=== PATIENT | male | born 2000 | race Caucasian/White ===

== ENCOUNTER 2024-12-28 15:09 | Emergency (ER) | payer SELFPAY ==
[2024-12-28 15:10] VITALS: BP 127/85; PULSE 104; RESP 18; TEMP 36.7; O2SAT 98
--- NOTE | 2024-12-28 15:18 | XRR_ITS ---
PROCEDURE INFORMATION: Exam: XR Chest Exam date and time: 12/28/2024 3:59 PM Age: 24 years old Clinical indication: Palpitations; Tachycardia TECHNIQUE: Imaging protocol: Radiologic exam of the chest. Views: 1 view. COMPARISON: No relevant prior studies available. FINDINGS: Lungs: Unremarkable. No consolidation. Pleural spaces: Unremarkable. No pleural effusion. No pneumothorax. Heart/Mediastinum: Unremarkable. No cardiomegaly. Bones/joints: Unremarkable. XR/XR chest 1V portable [id number] IMPRESSION: No acute findings.
--- NOTE | 2024-12-28 15:21 | ECG_ITS ---
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 Measurements Intervals [place] Rate: 106 P: 47 [place]: 202 QRS: 57 QRSD: 78 T: 63 QT: 309 QTc: 412 Interpretive Statements SINUS TACHYCARDIA NONSPECIFIC T-WAVE ABNORMALITY ABNORMAL RHYTHM ECG No previous ECG available for comparison Electronically Signed On 12-28-2024 21:27:31 CDT by Charito Correia M.D. [id number]
--- NOTE | 2024-12-28 15:21 | ED_ITS ---
HPI - Arrhythmia/Palpitations 2 General: Chief Complaint: Arrhythmia/Palpitations Stated Complaint: high heart rate Time Seen by Provider: 12/28/24 15:12 Source: patient Mode of arrival: ambulatory Limitations: no limitations History of Present Illness: 24-year-old male states that he started having palpitations last night and then woke up this morning again with palpitations. He states has had this happen in the past. States usually resolves on its own but during this time EMS states his heart rate was in the 140s to 160s when they arrived it is improved currently 105 he denies any chest pain denies any shortness of breath. Associated symptoms: Deny nausea or vomiting Related Data Allergies Allergy/AdvReac Type Severity Reaction Status Date / Time No Known Allergies Allergy Verified 12/28/24 15:15 Review of Systems 2 Const: Denies: fever(s), chills, body aches or change in appetite ENMT: Denies: throat pain or dental pain Card: Reports: palpitations; Denies: chest pain Resp: Denies: dyspnea GI: Denies: abdominal pain, nausea, vomiting or diarrhea : Denies: dysuria Musc: Denies: neck pain or back pain Skin/Breast: Denies: rash Neuro: Denies: headache(s) Physical Exam 2 Const: COMMON NORMALS: no acute distress, patient oriented x3 and healthy appearing HENMT: COMMON NORMALS: normocephalic and atraumatic HEAD & SCALP: n ormocephalic and atraumatic Eye: COMMON NORMALS: conjunctivae normal CONJUNCTIVA: Yes conjunctivae normal Neck/C-Spine: COMMON NORMALS: full ROM and supple Chest: COMMONS NORMALS: normal inspection of the chest Resp: COMMON NORMALS: normal respiratory effort, No retractions, No use of accessory muscles and clear to auscultation bilaterally AUSCULTATION: clear to auscultation bilaterally Cardio: COMMON NORMALS: regular rhythm and No murmurs present (Cardio) R ATE: tachycardic RHYTHM: regular rhythm Extremity: COMMON NORMALS: normal to inspection and full ROM Neuro: COMMON NORMALS: patient oriented x3, moves all extremities and no focal motor deficits Psych: COMMON NORMALS: mental status grossly normal, Normal thought process present and cooperative THOUGHT PROCESS: Normal thought process present Skin: COMMON NORMALS: no rashes or lesions noted and no wounds GENERAL SKIN EXAM: no rashes or lesions noted Course 2 Vital Signs: Vital signs: Vital Signs Temperature 98.1 F 12/28/24 15:10 Pulse Rate 108 H 12/28/24 16:05 Respiratory Rate 18 12/28/24 15:10 Blood Pressure 110/68 12/28/24 16:05 Pulse Oximetry 97 12/28/24 16:05 Oxygen Delivery Me thod Room Air 12/28/24 16:05 MDM - Arrhythmia/Palpitations Medical Decision Making Patient presents here with palpitations blood work EKG is normal here he has no signs of pulmonary embolism he feels improved he stable for discharge follow-up with PCP return if worsening. Medical Records I reviewed the patient's medical records. Lab Data I reviewed the patient's lab results. 12/28/24 15:00 12/28/24 15:00 Laboratory Results WBC 14.61 10^3/uL (3.29-11.43) H 12/28/24 15:00 RBC 5.87 10^6/uL (3.85-5.65) H 12/28/24 15:00 Hgb 16.70 g/dL (11.27-16.99) 12/28/24 15:00 Hct 48.8 % (37-53) 12/28/24 15:00 MCV 83.1 fl (82-101) 12/28/24 15:00 MCH 28.4 pg (27-33) 12/28/24 15:00 MCHC 34.2 g/dL (30-55) 12/28/24 15:00 RDW 12.5 % (12.1-15.1) 12/28/24 15:00 Plt Count 242 10^3/cmm (157-399) 12/28/24 15:00 MPV 10.8 fL (7.4-10.4) H 12/28/24 15:00 Neut % (Auto) 72.1 % 12/28/24 15:00 Lymph % (Auto) 17.8 % 12/28/24 15:00 [place] % (Auto) 6.4 % 12/28/24 15:00 Eos % (Auto) 2.7 % 12/28/24 15:00 Baso % (Auto) 0.7 % 12/28/24 15:00 Neut # (Auto) 10.54 10^3/uL (1.8-7.7) H 12/28/24 15:00 Lymph # (Auto) 2.6 10^3/uL (0.8-4.8) 12/28/24 15:00 [place] # (Auto) 0.9 10^3/uL (0.2-0.9) 12/28/24 15:00 Eos # (Auto) 0.4 10^3/uL (0.0-0.8) 12/28/24 15:00 Baso # (Auto) 0.1 10^3/uL (0.0-0.1) 12/28/24 15:00 Nucleated RBC % (auto) 0 % 12/28/24 15:00 Nucleated RBCs # 0.0 /100WBC 12/28/24 15:00 Sodium 139 mmol/L (136-145) 12/28/24 15:00 Potassium 3.6 mmol/L (3.5-5.1) 12/28/24 15:00 Chloride 101 mmol/L (98-107) 12/28/24 15:00 Carbon Dioxide 22 mmol/L (22-29) 12/28/24 15:00 Anion Gap 19.6 (5-19) H 12/28/24 15:00 BUN 10 mg/dL (6-20) 12/28/24 15:00 Creatinine 0.8 mg/dL (0.7-1.2) 12/28/24 15:00 GFR Calculation 117.8 mL/min (90-130) 12/28/24 15:00 Glucose 99 mg/dL (65-115) 12/28/24 15:00 Calculated Osmolality 287 mOsm/kg (285-295) 12/28/24 15:00 Calcium 10.2 mg/dL (8.5-10.5) 12/28/24 15:00 Total Bilirubin 0.6 mg/dL (0.15-1.2) 12/28/24 15:00 AST 41 U/L (0-40) H 12/28/24 15:00 ALT 67 U/L (0-41) H 12/28/24 15:00 Alkaline Phosphatase 104 U/L (40-130) 12/28/24 15:00 Total Protein 8.2 g/dL (6.6-8.7) 12/28/24 15:00 Albumin 5.2 g/dL (3.5-5.2) 12/28/24 15:00 Globulin 3.0 g/dL (1.3-4.6) 12/28/24 15:00 All radiology interpretation(s) finalized by discharge EKG Data EKG 1: I personally reviewed and interpreted this EKG as follows: EKG interpretation date: 12/28/24 EKG interpretation time: 15:21 Interpretation: sinus tach hr [address] elevation qrs 78 qtc 371 Discharge Plan Discharge Patient Disposition: Home Clinical Impression: Palpitations Condition: Stable Discharge Orders: Discharge ED (Routine); Ordered 12/28/24 Ordered By: Kellie Acharya Discharge Diet: Advance as tolerated Discharge Activity: Resume usual activity Patient Instructions: Heart Palpitations (ED) Print Language: Hebrew Coding Level of Care Code ED Chronic Disease Manager for Diana Sr
[2024-12-28 15:22] VITALS: PULSE 98; O2SAT 99
[2024-12-28 15:24] LABS: Basophils # 0.1 10^3/uL (0.0-0.1); Basophils % 0.7 %; Eosinophils # 0.4 10^3/uL (0.0-0.8); Eosinophils % 2.7 %; Hematocrit 48.8 % (37-53); Lymphocytes # 2.6 10^3/uL (0.8-4.8); Lymphocytes % 17.8 %; Mean Corpuscular HGB Conc 34.2 g/dL (30-55); Mean Corpuscular Hemoglobin 28.4 pg (27-33); Mean Corpuscular Volume 83.1 fl (82-101); Mean Platelet Volume 10.8 fL (7.4-10.4); Monocytes # 0.9 10^3/uL (0.2-0.9); Monocytes % 6.4 %; Neutrophils # 10.54 10^3/uL (1.8-7.7); Neutrophils % 72.1 %; Nucleated Red Blood Cells % 0 %; Platelet Count 242 10^3/cmm (157-399); Red Blood Count 5.87 10^6/uL (3.85-5.65); Red Cell Distribution Width 12.5 % (12.1-15.1); White Blood Count 14.61 10^3/uL (3.29-11.43)
[2024-12-28] MEDS: sodium chloride 0.9% 1,000 ML 999 ML IV (15:45)
[2024-12-28] MEDS: LORazepam 1 MG/0.5 ML injection IVP (15:45)
[2024-12-28 15:47] LABS: Alanine Aminotransferase 67 U/L (0-41); Albumin Level 5.2 g/dL (3.5-5.2); Alkaline Phosphatase 104 U/L (40-130); Anion Gap 19.6 (5-19); Aspartate Amino Transferase 41 U/L (0-40); Blood Urea Nitrogen 10 mg/dL (6-20); Calcium 10.2 mg/dL (8.5-10.5); Carbon Dioxide 22 mmol/L (22-29); Chloride 101 mmol/L (98-107); Glomerular Filtration Rate 117.8 mL/min (90-130); Glucose 99 mg/dL (65-115); Osmolality Calculated 287 mOsm/kg (285-295); Potassium 3.6 mmol/L (3.5-5.1); Sodium 139 mmol/L (136-145); Total Bilirubin 0.6 mg/dL (0.15-1.2); Total Protein 8.2 g/dL (6.6-8.7)
[2024-12-28 16:05] VITALS: BP 110/68; PULSE 108; O2SAT 97
[2024-12-28 16:54] VITALS: BP 119/71; PULSE 103; O2SAT 98
== END 2024-12-28 16:55 | disposition home or self-care (01) ==
PROVIDERS: Emergency Provider Emergency Medicine
DX: R00.2 Palpitations (principal)
CPT/HCPCS: 71045; 80053; 85025; 93005; 96374; 99285; J2060; J7030

== ENCOUNTER → 2025-01-06 13:20 | Outpatient (BNVA) | payer SELFPAY | PROVIDERS: Visit Provider Registered Nurse Neonatal Intensive Care | DX: J02.9 Acute pharyngitis, unspecified (principal) | CPT/HCPCS: 87880 ==

== ENCOUNTER 2025-01-15 21:17 | Emergency (ER) | payer SELFPAY ==
[2025-01-15 21:27] VITALS: BP 157/98; PULSE 75; RESP 14; TEMP 36.5; O2SAT 97
--- NOTE | 2025-01-15 21:38 | CTR_ITS ---
PROCEDURE INFORMATION: Exam: CTA Head With Contrast, Arteriography Exam date and time: 01/15/2025 9:53 PM Age: 24 years old Clinical indication: Numbness and weakness; Additional info: Left facial numbness, left arm weakness TECHNIQUE: Imaging protocol: Computed tomographic angiography of the head with contrast. Exam focused on the arteries. 3D rendering (Not supervised by radiologist): MIP and/or 3D reconstructed images were created by the technologist. Radiation optimization: All CT scans at this facility use at least one of these dose optimization techniques: automated exposure control; mA and/or kV adjustment per patient size (includes targeted exams where dose is matched to clinical indication); or iterative reconstruction. Contrast material: OMNI 350; Contrast volume: 100 ml; Contrast route: INTRAVENOUS (IV); COMPARISON: CT head wo con* [id number] 01/15/2025 9:49 PM RADIATION DOSE METRICS: Total DLP (mGy-cm): 409.8 FINDINGS: ANTERIOR CIRCULATION: Right internal carotid artery: Intracranial segment is patent with no significant stenosis. No aneurysm. Right middle cerebral artery: No occlusion or significant stenosis. No aneurysm. Right anterior cerebral artery: No occlusion or significant stenosis. No aneurysm. Left internal carotid artery: Intracranial segment is patent with no significant stenosis. No aneurysm. Left middle cerebral artery: No occlusion or significant stenosis. No aneurysm. Left anterior cerebral artery: No occlusion or significant stenosis. No aneurysm. POSTERIOR CIRCULATION: Right vertebral artery: No occlusion or significant stenosis. No aneurysm. Left vertebral artery: No occlusion or significant stenosis. No aneurysm. Basilar artery: No occlusion or significant stenosis. No aneurysm. Right posterior cerebral artery: No occlusion or significant stenosis. No aneurysm. Left posterior cerebral artery: No occlusion or significant stenosis. No aneurysm. Brain: No acute intracranial hemorrhage, abnormal extra-axial fluid collection, mass effect, or midline shift. Cerebral ventricles: The ventricular system is within normal limits variation of the patient's age. Bones/joints: Unremarkable. No acute fracture. Soft tissues: Unremarkable. PROCEDURE INFORMATION: Exam: CTA Neck With Contrast Exam date and time: 01/15/2025 9:53 PM Age: 24 years old Clinical indication: Numbness and weakness; Additional info: Left facial numbness, left arm weakness TECHNIQUE: Imaging protocol: Computed tomographic angiography of the neck with contrast. Exam focused on the cervical segments of the vasculature. 3D rendering (Not supervised by radiologist): MIP and/or 3D reconstructed images were created by the technologist. Radiation optimization: All CT scans at this facility use at least one of these dose optimization techniques: automated exposure control; mA and/or kV adjustment per patient size (includes targeted exams where dose is matched to clinical indication); or iterative reconstruction. Contrast material: OMNI 350; Contrast volume: 100 ml; Contrast route: INTRAVENOUS (IV); COMPARISON: CT head wo con* [id number] 01/15/2025 9:49 PM RADIATION DOSE METRICS: Total DLP (mGy-cm): 409.8 FINDINGS: Right common carotid artery: No stenosis. No dissection or occlusion. Right internal carotid artery: No stenosis of the extracranial segment. No dissection or occlusion. Right external carotid artery: No occlusion or stenosis of the origin. Left common carotid artery: No stenosis. No dissection or occlusion. Left internal carotid artery: No stenosis of the extracranial segment. No dissection or occlusion. Left external carotid artery: No occlusion or stenosis of the origin. Right vertebral artery: No stenosis. No dissection or occlusion. Left vertebral artery: No stenosis. No dissection or occlusion. Soft tissues: Grossly unremarkable. Bones/joints: No acute fracture. CT/CT angio headneck* [id number] IMPRESSION: No large vessel stenosis, aneurysm, or occlusion. IMPRESSION: No stenosis, dissection, or occlusion. REFERENCES: NASCET CRITERIA. The degree of stenosis in the cervical segment of the internal carotid artery is based on NASCET criteria. Normal is no stenosis. Mild is less than 50% stenosis. Moderate is 50-69% stenosis. Severe is 70% to 99% stenosis. Total occlusion is no detectable patent lumen.
--- NOTE | 2025-01-15 21:38 | CTR_ITS ---
PROCEDURE INFORMATION: Exam: CT Head Without Contrast Exam date and time: 01/15/2025 9:49 PM Age: 24 years old Clinical indication: Numbness / parasthesia and weakness, facial; Left; Additional info: Left facial numbnes TECHNIQUE: Imaging protocol: Computed tomography of the head without contrast. Radiation optimization: All CT scans at this facility use at least one of these dose optimization techniques: automated exposure control; mA and/or kV adjustment per patient size (includes targeted exams where dose is matched to clinical indication); or iterative reconstruction. COMPARISON: No relevant prior studies available. RADIATION DOSE METRICS: Total DLP (mGy-cm): 1111.2 FINDINGS: Brain: No acute intracranial hemorrhage, abnormal extra-axial fluid collection, mass effect, or midline shift. Cerebral ventricles: The ventricular system is within normal limits of variation for the patient's age. Paranasal sinuses: No acute sinusitis. Mastoid air cells: Visualized mastoid air cells are well aerated. Bones: No acute fracture. Soft tissues: Grossly unremarkable. CT/CT head wo con* [id number] IMPRESSION: No acute intracranial findings.
--- NOTE | 2025-01-15 21:39 | ECG_ITS ---
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
[2025-01-15 22:13] LABS: Hematocrit 45.6 % (37-53); Hemoglobin 15.40 g/dL (11.27-16.99); Mean Corpuscular HGB Conc 33.8 g/dL (30-55); Mean Corpuscular Hemoglobin 28.5 pg (27-33); Mean Corpuscular Volume 84.4 fl (82-101); Nucleated Red Blood Cells % 0 %; Platelet Count 217 10^3/cmm (157-399); Red Blood Count 5.40 10^6/uL (3.85-5.65); White Blood Count 8.78 10^3/uL (3.29-11.43)
[2025-01-15 22:30] VITALS: BP 142/80; PULSE 95; RESP 17; O2SAT 96
[2025-01-15 22:34] LABS: Alanine Aminotransferase 58 U/L (0-41); Albumin Level 4.2 g/dL (3.5-5.2); Alkaline Phosphatase 78 U/L (40-130); Anion Gap 16.3 (5-19); Aspartate Amino Transferase 24 U/L (0-40); Blood Urea Nitrogen 11 mg/dL (6-20); Calcium 8.9 mg/dL (8.5-10.5); Carbon Dioxide 23 mmol/L (22-29); Chloride 100 mmol/L (98-107); Creatinine Clr Calc Pharmacy 124.8908; Globulin 2.6 g/dL (1.3-4.6); Glucose 154 mg/dL (65-115); Osmolality Calculated 284 mOsm/kg (285-295); Potassium 3.3 mmol/L (3.5-5.1); Sodium 136 mmol/L (136-145); Total Protein 6.8 g/dL (6.6-8.7)
[2025-01-15 22:37] LABS: Troponin(5th) Baseline < 6 ng/L (0-15)
[2025-01-15 23:30] VITALS: BP 130/81; PULSE 97; RESP 18; O2SAT 94
--- NOTE | 2025-01-15 23:38 | ECG_ITS ---
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
--- NOTE | 2025-01-15 23:44 | ED_ITS ---
HPI - Weakness 2 General: Chief complaint: Weakness Stated complaint: left arm and face tingling. feels heavy Time Seen by Provider: 01/15/25 21:33 History of Present Illness: Patient presents emerged part with complaint of palpitations and some chest pressure. He states has had this off and on for several months recently but has happened for many years. He states that it will come and waves where it will be worse for a few months. He states that he feels his heart racing up to 140-160. Sometimes even as high as 180. He has not been actually able to catch anything on EKG but he feels that he probably has SVT. Tonight he also states that he feels like his left arm is heavy although he denies it being particularly weak or numb. He just states that the muscles in the feel funny. He is on amoxicillin for strep. He also states that he feels like maybe the left side of his face is little bit more numb. He states the arm and face sensation has been going on for the past 3 days. PFSH ED 2 PFSH: Social History Smoking and tobacco/nicotine status: never used tobacco/nicotine Physical Exam 2 Const: COMMON NORMALS: no acute distress, average body habitus, patient oriented x3, no limitations, healthy appearing, alert and well nourished HENMT: COMMON NORMALS: normocephalic, atraumatic, hearing grossly normal bilaterally, external ears normal, EAC's normal, TM's normal bilaterally, Normal external nose present, Normal nasal mucous membranes and turbinates present, moist oral mucous membranes, oropharynx normal, dentition normal and gingiva normal HEAD & SCALP: normocephalic and atraumatic NOSE: Normal external nose present and Normal nasal mucous membranes and turbinates present E XTERNAL EAR: Yes external ears normal EXTERNAL AUDITORY CANAL: EAC's normal TYMPANIC MEMBRANE: TM's normal bilaterally Eye: COMMON NORMALS: Equal, round and reactive pupils present, EOMs intact bilaterally, conjunctivae normal, no scleral icterus, no papilledema, normal visual norris by confrontation and fundi normal bilaterally CONJUNCTIVA: Yes conjunctivae normal PUPIL: Yes Equal, round and reactive pupils present D IRECT OPHTHALMOSCOPY: Yes no papilledema and Yes fundi normal bilaterally Neck/C-Spine: COMMON NORMALS: full ROM, no lymphadenopathy, supple, no meningeal signs, no JVD, Thyroid normal and No carotid bruits THYROID: T hyroid normal Chest: COMMONS NORMALS: normal inspection of the chest, normal palpation of entire chest wall and normal inspection of the breasts Breast/axilla inspection: Yes normal inspection of the breasts Resp: COMMON NORMALS: normal respiratory effort, No retractions, No use of accessory muscles, clear to auscultation bilaterally and percussion normal A USCULTATION: clear to auscultation bilaterally PERCUSSION: percussion normal Cardio: COMMON NORMALS: no JVD GI: COMMON NORMALS: Normal to inspection, nondistended, normoactive bowel sounds present, Soft to palpation, non-tender, No hepatosplenomegaly present, no masses and no bruits PALPATION: Yes Soft to palpation and Yes No hepatosplenomegaly present Extremity: COMMON NORMALS: normal to inspection, full ROM, capillary refill normal, no joint enlargement, no clubbing, cyanosis or edema, no calf tenderness and no pedal edema Neuro: COMMON NORMALS: patient oriented x3, moves all extremities, no focal motor deficits and no sensory deficits noted SENSORIUM/ORIENTATION: Yes alert MENINGEAL SIGNS: Yes no meningeal signs SENSORY EXAM: Yes extremities M OTOR EXAM: 5/5 motor strength present throughout Psych: COMMON NORMALS: mental status grossly normal, Normal thought process present, cooperative, normal affect, speech normal, activity/motor behavior normal, denies hallucinations, denies homicidal ideation and denies suicidal ideation SPEECH: Yes normal speech THOUGHT PROCESS: Normal thought process present Course 2 Vital Signs: Vital signs: Vital Signs Temperature 97.7 F 01/15/25 21:27 Pulse Rate 75 01/15/25 21:27 Respiratory Rate 14 01/15/25 21:27 Blood Pressure 157/98 01/15/25 21:27 Pulse Oximetry 97 01/15/25 21:27 Oxygen Delivery Me thod Room Air 01/15/25 21:27 MDM - Weakness Medical Decision Making Patient with intermittent palpitations off and on for several months if not even years. States that he has chest pressure associated with it. He states that he feels like the left side of his face may feel a bit numb with some odd sensation in his left arm when he moves it. He has got no objective findings. Patient has no significant abnormality noted on labs or imaging including head CT and CTA of the head and neck. Troponin is negative. Labs are normal. Unclear if symptoms are physiologic or psychogenic. EKG is nonischemic. Do not see any emergent condition at this time. This patient has been having symptoms of his left face and left arm for 3 days and has normal head CT without CVA. Patient to follow-up with cardiology regarding palpitations. Lab Data 01/15/25 22:07 01/15/25 22:[address] 01/15/25 21:38 IMPRESSION: No acute intracranial findings. Head/Neck CTA 01/15/25 21:38 IMPRESSION: No large vessel stenosis, aneurysm, or occlusion. IMPRESSION: No stenosis, dissection, or occlusion. REFERENCES: NASCET CRITERIA. The degree of stenosis in the cervical segment of the internal carotid artery is based on NASCET criteria. Normal is no stenosis. Mild is less than 50% stenosis. Moderate is 50-69% stenosis. Severe is 70% to 99% stenosis. Total occlusion is no detectable patent lumen. Laboratory Results WBC 8.78 10^3/uL (3.29-11.43) 01/15/25 22:07 RBC 5.40 10^6/uL (3.85-5.65) 01/15/25 22:07 Hgb 15.40 g/dL (11.27-16.99) 01/15/25 22:07 Hct 45.6 % (37-53) 01/15/25 22:07 MCV 84.4 fl (82-101) 01/15/25 22:07 MCH 28.5 pg (27-33) 01/15/25 22:07 MCHC 33.8 g/dL (30-55) 01/15/25 22:07 RDW 12.7 % (12.1-15.1) 01/15/25 22:07 Plt Count 217 10^3/cmm (157-399) 01/15/25 22:07 MPV 10.7 fL (7.4-10.4) H 01/15/25 22:07 Neut % (Auto) 55.0 % 01/15/25 22:07 Lymph % (Auto) 31.5 % 01/15/25 22:07 [place] % (Auto) 7.6 % 01/15/25 22:07 Eos % (Auto) 4.9 % 01/15/25 22:07 Baso % (Auto) 0.8 % 01/15/25 22:07 Neut # (Auto) 4.82 10^3/uL (1.8-7.7) 01/15/25 22:07 Lymph # (Auto) 2.8 10^3/uL (0.8-4.8) 01/15/25 22:07 [place] # (Auto) 0.7 10^3/uL (0.2-0.9) 01/15/25 22:07 Eos # (Auto) 0.4 10^3/uL (0.0-0.8) 01/15/25 22:07 Baso # (Auto) 0.1 10^3/uL (0.0-0.1) 01/15/25 22:07 Nucleated RBC % (auto) 0 % 01/15/25 22:07 Nucleated RBCs # 0.0 /100WBC 01/15/25 22:07 Sodium 136 mmol/L (136-145) 01/15/25 22:07 Potassium 3.3 mmol/L (3.5-5.1) L 01/15/25 22:07 Chloride 100 mmol/L (98-107) 01/15/25 22:07 Carbon Dioxide 23 mmol/L (22-29) 01/15/25 22:07 Anion Gap 16.3 (5-19) 01/15/25 22:07 BUN 11 mg/dL (6-20) 01/15/25 22:07 Creatinine 0.8 mg/dL (0.7-1.2) 01/15/25 22:07 GFR Calculation 117.8 mL/min (90-130) 01/15/25 22:07 Glucose 154 mg/dL (65-115) H 01/15/25 22:07 Calculated Osmolality 284 mOsm/kg (285-295) L 01/15/25 22:07 Calcium 8.9 mg/dL (8.5-10.5) 01/15/25 22:07 Total Bilirubin 0.4 mg/dL (0.15-1.2) 01/15/25 22:07 AST 24 U/L (0-40) 01/15/25 22:07 ALT 58 U/L (0-41) H 01/15/25 22:07 Alkaline Phosphatase 78 U/L (40-130) 01/15/25 22:07 Creatine Kinase 48 U/L (39-308) 01/15/25 22:07 Troponin T Baseline < 6 ng/L (0-15) 01/15/25 22:07 Total Protein 6.8 g/dL (6.6-8.7) 01/15/25 22:07 Albumin 4.2 g/dL (3.5-5.2) 01/15/25 22:07 Globulin 2.6 g/dL (1.3-4.6) 01/15/25 22:07 All radiology interpretation(s) finalized by discharge Discharge Plan Discharge Patient Disposition: Home Clinical Impression: Heart palpitations Condition: Stable Prescriptions: No Action amoxicillin-pot clavulanate 875-125 mg tablet 1 tab PO BID 10 Days Qty: 20 0RF aspirin [Alfonso Low Dose Aspirin] 81 mg Tablet,Delayed Release (Dr/Ec) 81 mg PO DAILY Discharge Orders: Discharge ED (Routine); Ordered 01/15/25 Ordered By: Rivera Rocha Referrals: Arleen Sidhu MD [Physician, Cardiology] Patient Instructions: Opioid Safety, Pain Management, Patient Portal & Heather Instructions Print Language: Austrian Coding Level of Care Code ED Lumber Sorter Machine for Chg Fwd Related Data Home Medications ?Medication ?Instructions ?Recorded ?Confirmed aspirin 81 mg tablet,delayed 81 mg PO DAILY 12/28/24 0 01/06/25 release (Alfonso Low Dose Aspirin) Previous Rx's ?Medication ?Instructions ?Recorded amoxicillin 875 mg-potassium 1 tab PO BID 10 days #20 tabs 01/06/25 clavulanate 125 mg tablet Allergies Allergy/AdvReac Type Severity Reaction Status Date / Time No Known Allergies Allergy Verified 01/15/25 21:30
[2025-01-16 00:07] VITALS: BP 116/80; PULSE 83; RESP 16; O2SAT 95
== END 2025-01-16 00:09 | disposition home or self-care (01) ==
PROVIDERS: Emergency Provider Emergency Medicine
DX: R00.2 Palpitations (principal); Z79.82 Long term (current) use of aspirin
CPT/HCPCS: 36415; 70450; 70496; 70498; 80053; 82550; 84484; 85025; 93005; 93010; 99285